=== PATIENT | female | born 1940 | race American Indian/Alaskan Native ===

== ENCOUNTER 2018-09-03 12:39 | Emergency (ER) | payer MEDICARE, BC ==
[2018-09-03 12:39] VITALS: BMI 33.6
[2018-09-03 12:46] VITALS: BP 149/83; PULSE 73; RESP 20; TEMP 97.4; O2SAT 98
[2018-09-03] MEDS ORDERED: Oxycodone/Acetaminophen 5/325 mg Tab PO STA (13:20)
[2018-09-03] MEDS ORDERED: Oxycodone/Acetaminophen 5/325 mg Tab ONE (13:27)
--- NOTE | 2018-09-03 13:42 | C.PDOC ---
History Of Present Illness 77 year old female complains of cough for 4 days and right lower back pain that radiates down the leg for 3 weeks. Patient has a history of back problems and sciatica and notes current symptoms feels similar. Patient has been taking OTC medications without relief. She states she used to take Percocet when the pain became this severe, but has been unable to see her orthopedic. Denies fever, chills, numbness, tingling, and any other associated symptoms. Time Seen by Provider: 09/03/18 13:11 Chief Complaint (Nursing): Cough, Cold, Congestion History Per: Patient History/Exam Limitations: no limitations Onset/Duration Of Symptoms: Days Current Symptoms Are (Timing): Still Present Past Medical History Reviewed: Historical Data, Nursing Documentation, Vital Signs Vital Signs: Last Vital Signs Temp 97.4 F L 09/03/18 12:43 Pulse 73 09/03/18 12:43 Resp 20 09/03/18 12:43 BP 149/83 09/03/18 12:43 Pulse Ox 98 09/03/18 12:43 - Medical History PMH: Anemia, Arthritis, Gall Bladder Disease, HTN, Hypercholesterolemia, Rita pheral Edema Surgical History: Cholecystectomy, Endoscopy Family History: States: Unknown Family Hx - Social History Hx Tobacco Use: No Hx Alcohol Use: No Hx Substance Use: No - Immunization History Hx Tetanus Toxoid Vaccination: No Hx Influenza Vaccination: Yes (2018) Hx Pneumococcal Vaccination: Yes Review Of Systems Constitutional: Negative for: Fever, Chills Respiratory: Positive for: Cough Musculoskeletal: Positive for: Back Pain (right. lower. ), Leg Pain (right leg pain secondary to back pain. ) Neurological: Negative for: Weakness, Numbness, Incoordination Physical Exam - Physical Exam Appears: Well, Non-toxic, No Acute Distress Skin: Normal Color, Warm, Dry Head: Atraumatic, Normacephalic Eye(s): bilateral: Normal Inspection Ear(s): Bilateral: Normal Nose: Normal Oral Mucosa: Moist Throat: Normal, No Erythema, No Exudate Neck: Normal ROM, Supple Chest: Symmetrical Cardiovascular: Rhythm Regular, No Murmur Respiratory: Normal Breath Sounds, No Rales, No Rhonchi, No Wheezing Back: Normal Inspection, No CVA Tenderness, No Paraspinal Tenderness, No Other (normal ROM. ) Neurological/Psych: Oriented x3, Normal Speech ED Course And Treatment O2 Sat by Pulse Oximetry: 98 (RA) Pulse Ox Interpretation: Normal Medical Decision Making Medical Decision Making: Plan: -Percocet. Prednisone. Progress/Update: Patient appears non-toxic and in no distress. Rx given. Patient advised to rest, drink fluids and take medications for supportive treatment. Patient stable for discharge and given follow up instructions. Prescribed Prednisone and Percocet. Disposition Counseled Patient/Family Regarding: Diagnosis, Need For Followup, Rx Given - Disposition Referrals: Maira Maldonado MD [Staff Provider] - Disposition: HOME/ ROUTINE Disposition Time: 13:40 Condition: GOOD Additional Instructions: Follow up with your primary medical doctor or clinic in 2-5 days for further evaluation. Take medications as prescribed. Return to the emergency department at any time if symptoms persist or worsen. Prescriptions: oxyCODONE/Acetaminophen [Percocet 5/325 mg Tab] 1 tab PO Q8 PRN #15 tab PRN Reason: Pain, Severe (8-10) Prednisone 50 mg PO DAILY #5 tablet Instructions: Sciatica (DC), Upper Respiratory Infection (ED) Forms: [employer] (Sami) - POA Present On Arrival: None - Clinical Impression Clinical Impression: Upper respiratory infection, Sciatica - PA / TROLLEY OPERATOR / Resident Statement MD/DO has reviewed & agrees with the documentation as recorded. - Scribe Statement The provider has reviewed the documentation as recorded by the Scribe (Courtney De Paz) All medical record entries made by the Scribe were at my direction and personally dictated by me. I have reviewed the chart and agree that the record accurately reflects my personal performance of the history, physical exam, medical decision making, and the department course for this patient. I have also personally directed, reviewed, and agree with the discharge instructions and disposition.
== END 2018-09-03 13:55 | disposition home or self-care (01) ==
LOC: C.ER 12:39
DX: J06.9 Acute upper respiratory infection, unspecified (principal); M54.30 Sciatica, unspecified side

== ENCOUNTER 2018-09-08 13:03 | Emergency (ER) | payer MEDICARE, BC ==
[2018-09-08 13:03] VITALS: BMI 33.6
[2018-09-08 13:32] VITALS: O2SAT 97
[2018-09-08] MEDS ORDERED: Sodium Chloride 0.9% 1,000 ML IV ONE (14:04)
[2018-09-08] MEDS ORDERED: Sodium Chloride 0.9% 1,000 ML ONE (14:36)
--- NOTE | 2018-09-08 14:39 | C.PDOC ---
History Of Present Illness 77 year old female presents to the ED complaining of cough, congestion, and malaise for the past few days. Patient states she has not feeling well for a few days, describes having "pain from head to toe." Cough is productive of white sputum. Patient was seen here a few days ago, reports she finished oral prednisone course with no relief. Otherwise she denies any fever, chills, chest pain, or SOB. Time Seen by Provider: 09/08/18 13:56 Chief Complaint (Nursing): Flu-like Symptoms History Per: Patient History/Exam Limitations: no limitations Onset/Duration Of Symptoms: Days Current Symptoms Are (Timing): Still Present Past Medical History Reviewed: Historical Data, Nursing Documentation, Vital Signs Vital Signs: Last Vital Signs Temp 98.4 F 09/08/18 13:20 Pulse 96 H 09/08/18 13:20 Resp 18 09/08/18 13:20 BP 164/97 H 09/08/18 13:20 Pulse Ox 97 09/08/18 13:20 - Medical History PMH: Anemia, Arthritis, Gall Bladder Disease, HTN, Hypercholesterolemia, Peripheral Edema Surgical History: Cholecystectomy, Endoscopy Family History: States: Unknown Family Hx - Social History Hx Tobacco Use: No Hx Alcohol Use: No Hx Substance Use: No - Immunization History Hx Tetanus Toxoid Vaccination: No Hx Influenza Vaccination: Yes (2018) Hx Pneumococcal Vaccination: Yes Review Of Systems Constitutional: Positive for: Malaise. Negative for: Fever, Chills ENT: Positive for: Nose Congestion Cardiovascular: Negative for: Chest Pain Respiratory: Positive for: Cough. Negative for: Shortness of Breath, Wheezing Gastrointestinal: Negative for: Vomiting, Diarrhea Musculoskeletal: Positive for: Other (Pain "from head to toe") Skin: Negative for: Rash Neurological: Positive for: Headache. Negative for: Weakness, Numbness, Incoordination Physical Exam - Physical Exam Appears: Non-toxic, No Acute Distress Skin: Warm, Dry, No Rash Head: Atraumatic, Normacephalic Eye(s): bilateral: Normal Inspection Ear(s): Bilateral: Normal (no erythema) Oral Mucosa: Moist Throat: Normal, No Erythema Neck: Normal ROM Chest: Symmetrical Cardiovascular: Rhythm Regular, No Murmur Respiratory: Normal Breath Sounds, No Rales, No Rhonchi, No Wheezing Gastrointestinal/Abdominal: Bowel Sounds (active), Soft, No Tenderness, No Guarding Back: No CVA Tenderness, No Vertebral Tenderness Extremity: Bilateral: Atraumatic, Normal Color And Temperature, Normal ROM Neurological/Psych: Oriented x3, Normal Speech ED Course And Treatment - Laboratory Results Result Diagrams: 09/08/18 14:49 09/08/18 14:49 O2 Sat by Pulse Oximetry: 97 (RA) Pulse Ox Interpretation: Normal Medical Decision Making Medical Decision Making: Impression: Flu-like symptoms Plan: --Blood work --Urinalysis --Flu swab --Chest x-ray --IV fluids --Tramadol 50 mg PO All labs reviewed and unremarkable. Rapid flu test was negative. CXR shows no infiltrate. Patient re-evaluated and was resting on stretcher in no distress. She has no fever and stable vital signs. I explained her results and she has viral illness. The plan is to discharge home with Rx and have patient follow up with [facility]. Disposition Counseled Patient/Family Regarding: Diagnosis, Need For Followup, Rx Given - Disposition Referrals: Maira Maldonado MD [Staff Provider] - Disposition: HOME/ ROUTINE Disposition Time: 16:21 Condition: STABLE Additional Instructions: Follow up with your primary medical doctor or clinic in 2-5 days for further evaluation. Take medications as prescribed. Return to the emergency department at any time if symptoms persist or worsen. Prescriptions: Promethazine HCl/Codeine [Promethazine-Codeine Syrup] 5 ml PO Q8 #480 ml traMADol [Ultram] 50 mg PO Q8 #20 tab Instructions: Viral Upper Respiratory Infection, Adult (DC) Forms: [employer] (Upper Sorbian) - POA Present On Arrival: None - Clinical Impression Clinical Impression: Influenza-like illness - PA / EDUCATION AND TRAINING COORDINATOR / Resident Statement MD/DO has reviewed & agrees with the documentation as recorded. - Scribe Statement The provider has reviewed the documentation as recorded by the Alessandroibbhakti Mcmanus All medical record entries made by the Alessandroibe were at my direction and personally dictated by me. I have reviewed the chart and agree that the record accurately reflects my personal performance of the history, physical exam, medical decision making, and the department course for this patient. I have also personally directed, reviewed, and agree with the discharge instructions and disposition.
[2018-09-08 14:53] LABS: BASO % 0.3 % (0.0-2.0); EOS % 0.1 % (0.0-4.0); HEMOGLOBIN 11.8 g/dL (11.0-16.0); LYMPH # 0.8 K/uL (1.0-4.3); MEAN CELL VOLUME 86.7 fL (81.0-99.0); MEAN CORPUSCULAR HEMOGLOBIN 28.9 pg (27.0-31.0); MEAN CORPUSCULAR HGB CONC 33.4 g/dL (33.0-37.0); MEAN PLATELET VOLUME 7.3 fL (7.2-11.7); MONO # 0.2 K/uL (0.0-0.8); MONO % 3.6 % (0.0-10.0); NEUT # 5.7 K/uL (1.8-7.0); RBC 4.09 Mil/uL (3.80-5.20); RED CELL DISTRIBUTION WIDTH 14.6 % (11.5-14.5); WHITE BLOOD COUNT 6.8 K/uL (4.8-10.8)
--- NOTE | 2018-09-08 14:53 | RAD ---
Date of service: 09/08/2018 HISTORY: SOB COMPARISON: 03/12/2017 TECHNIQUE: Chest PA and lateral FINDINGS: LUNGS: No active pulmonary disease. PLEURA: No significant pleural effusion identified. No pneumothorax apparent. CARDIOVASCULAR: There is absence of aortic atherosclerotic calcification on x-ray. Top-normal heart size No significant appearing pulmonary venous congestion. OSSEOUS STRUCTURES: No significant abnormalities. VISUALIZED UPPER ABDOMEN: Normal. OTHER FINDINGS: Left lateral chest wall/axillary inferred lymph node dissection clips present. Status post left mastectomy-stable in appearance IMPRESSION: Postop changes as above stable. No interval pathology noted.
[2018-09-08 14:58] LABS: SQUAMOUS EPITHIAL 1 /hpf (0-5); URINE BACTERIA RARE (<OCC); URINE BILIRUBIN NEGATIVE (NEGATIVE); URINE BLOOD NEGATIVE (NEGATIVE); URINE CLARITY Clear (Clear); URINE COLOR Straw (YELLOW); URINE GLUCOSE (UA) NORMAL (Normal); URINE LEUKOCYTE ESTERASE 1+ Leu/uL (Negative); URINE PROTEIN NEGATIVE (NEGATIVE); URINE UROBILINOGEN NORMAL mg/dL (0.2-1.0)
[2018-09-08 15:12] LABS: ALB/GLOB RATIO 1.4 (1.0-2.1); ALT/SGPT 30 U/L (9-52); AST/SGOT 33 U/L (14-36); BLOOD UREA NITROGEN 16 mg/dL (7-17); CALCIUM 9.3 mg/dl (8.6-10.4); GFR NON-AFRICAN AMERICAN 54
[2018-09-08 16:30] VITALS: BP 163/90; PULSE 89; RESP 17; TEMP 98
== END 2018-09-08 16:31 | disposition home or self-care (01) ==
LOC: C.ER 13:03
DX: J11.1 Influenza due to unidentified influenza virus with other respiratory manifestations (principal); I10 Essential (primary) hypertension; E78.00 Pure hypercholesterolemia, unspecified
CPT/HCPCS: 71046; 80053; 81001; 85025; 87804; 99284; J7030